=== PATIENT | male | born 1985 | race Caucasian/White ===

== ENCOUNTER 2022-09-08 14:32 | Emergency (ER) | payer SELFPAY ==
[2022-09-08 14:59] VITALS: BP 145/88; PULSE 100; RESP 18; TEMP 98.1; BMI 33.4
[2022-09-08] MEDS ORDERED: SODIUM CHLORIDE 1,000 ML IV STA (16:48)
[2022-09-08 18:17] LABS: BASO % 0.8 % (0-2.0); EOS % 0.2 % (0-4.5); HEMATOCRIT 44.7 % (35.4-49); HEMOGLOBIN 15.5 GM/dL (11.7-16.9); LYMPH % 13.7 % (8-40); MCH 30.9 pg (25.7-33.7); MCHC 34.8 g/dl (32.0-35.9); MEAN CELL VOLUME 88.6 fl (80-96); MEAN PLT VOLUME 7.7 fl (7.5-11.1); MONO % 4.4 % (3.8-10.2); NEUT % 80.9 % (42.8-82.8); PLATELET COUNT 293 10^3/uL (134-434); RBC 5.04 M/mm3 (4.00-5.60); RDW 12.9 % (11.9-15.9); WHITE BLOOD COUNT 8.5 K/mm3 (4.0-10.0)
[2022-09-08 18:50] LABS: CHLORIDE 106 mmol/L (98-107); SODIUM 141 mmol/L (136-145)
[2022-09-08 18:51] LABS: CALCIUM 9.4 mg/dL (8.5-10.1)
[2022-09-08 18:52] LABS: ANION GAP 8 MMOL/L (8-16); BLOOD UREA NITROGEN 21.7 mg/dL (7-18); CO2 27 mmol/L (21-32); GLUCOSE,RANDOM 99 mg/dL (74-106)
[2022-09-08 18:55] LABS: CREATININE 1.2 mg/dL (0.55-1.3)
== END 2022-09-08 21:51 | disposition home or self-care (01) ==
LOC: EDBD 14:32 → JER 14:32
DX: T40.711A Poisoning by cannabis, accidental (unintentional), initial encounter (principal)
CPT/HCPCS: 36415; 71046-TC-FY; 80048; 84484; 85025; 85379; 93005; 93010; 99285-25